=== PATIENT | female | born 1970 | race Caucasian/White ===

== ENCOUNTER 2024-03-14 09:42 | Outpatient (CLI) | payer OTHER, SELFPAY | END 2024-03-14 09:43 | disposition home or self-care (01) | PROVIDERS: PCP Family Medicine; Visit Provider Physician Assistant | DX: N95.0 Postmenopausal bleeding (principal) | CPT/HCPCS: 83001 ==

== ENCOUNTER 2024-03-14 09:56 | Outpatient (CLI) | payer OTHER, SELFPAY ==
--- NOTE | 2024-03-14 10:00 | CRLHL7_ITS ---
For Patients: As a result of the Century Cures Act, medical imaging exams and procedure reports are released immediately into your electronic medical record. You may view this report before your referring provider. If you have questions, please contact your health care provider. INDICATION: Postmenopausal bleeding COMPARISON: none TECHNIQUE: 2D eddy scale and color Doppler images were acquired of the pelvis using a transabdominal and transvaginal approach. FINDINGS: Sonographic images demonstrate a normal size and smooth outer contour of the uterus. Uterus measures 8.7 cm in length by 4.8 cm in AP diameter by 4.5 cm in transverse dimension. Intramural fibroid is present posteriorly measuring 1.3 x 1.3 x 1.3 cm. The endometrial lining measures 6 mm in composite thickness. The right ovary measures 3.0 x 1.3 x 1.7 cm in size and the left ovary measures 3.3 x 1.4 x 2.2 cm. The ovaries demonstrate normal arterial and venous blood flow on color Doppler analysis. There are no suspicious fluid collections within the cul-de-sac. Simple left ovarian cyst is present measuring 1.4 x 1.0 x 1.2 cm. IMPRESSION: Endometrial thickness 6 millimeters. No endometrial fluid. Posterior intramural fibroid measures 1.3 cm. Simple left ovarian cyst measures 1.4 cm. Dictated by Jared Evans MD @ 03/14/2024 1:10:12 PM (Electronically Signed)
== END 2024-03-14 09:57 | disposition home or self-care (01) ==
LOC: US 09:57
PROVIDERS: PCP Family Medicine; Visit Provider Physician Assistant
DX: N95.0 Postmenopausal bleeding (principal); R93.89 Abnormal findings on diagnostic imaging of other specified body structures; D25.1 Intramural leiomyoma of uterus; N83.202 Unspecified ovarian cyst, left side
CPT/HCPCS: 76830; 76856

== ENCOUNTER 2024-04-01 07:21 | Day surgery (SDC) | payer OTHER, SELFPAY ==
[2024-04-01 07:38] VITALS: BMI 31.9
[2024-04-01 07:43] VITALS: BP 119/86; PULSE 91; RESP 16; TEMP 36.6; O2SAT 97
[2024-04-01] MEDS: SODIUM CHLORIDE 0.9 % (FLUSH) 10 ML SYRINGE IVF (07:50)
[2024-04-01 07:55] LABS: Hemoglobin* 14.6 gm/dL (12.0-16.0)
--- NOTE | 2024-04-01 09:02 | W.PM.H&PU ---
History & Physical Update History & Physical Update H&P Reviewed and patient assessed: No changes noted H&P Updates: Ms. Beckman is seen in pre-op prior to planned hysteroscopy and dilation and curettage in the setting of postmenopausal bleeding. No interval change to her health history or questions today. Unfortunately, she forgot to take her vaginal Cytotec last night that she has not received cervical prep. We again reviewed the risks, benefits and alternatives to the planned procedure. I did review that she has an increased risk of perforation in the setting of cervical stenosis, where we will utilize intraoperative safety steps to minimize this risk and ultrasound guidance if needed. Written consent was re-signed. Post-procedure restrictions and expectations reviewed. Pre-op labs reviewed and are within normal limits. No perioperative antibiotics indicated.
--- NOTE | 2024-04-01 09:24 | W.ANESCHARGE ---
Anesthesia Charges Start Date/Time Anesthesia Start Date: 04/01/24 Anesthesia Start Time: 09:05 Stop Date/Time Anesthesia Stop Date: 04/01/24 Anesthesia Stop Time: 09:55
[2024-04-01] MEDS: BUPIVACAINE 0.5% 30 ML INJECTION (09:31)
--- NOTE | 2024-04-01 09:49 | W.PM.GYNPROC ---
Procedure Note Time Seen by Provider: 09:51 Date of procedure: 04/01/24 Will [facility] bill your pro fee for this procedure?: Yes Pre-op diagnosis: Postmenopausal bleeding Cervical stenosis Procedure: Hysteroscopy, dilation and curettage (Truclear) Anesthesia: MAC and local Complications: None Surgeon: Karissa Cervantes MD Estimated blood loss (mL): 5 Urine Output (mL): 20 Pathology: specimen obtained, sent to pathology Condition: stable Disposition: same day Findings: Two small endometrial polyps, anterior lower uterine segment Largely inactive appearing endometrium Normal bilateral tubal ostia Procedure Description: Procedure in detail: Patient was taken to the operating room with IV running. She was positioned in dorsal lithotomy position with her legs fully supported in Yellofin stirrups. Monitored anesthesia care was administered. She was prepped and draped in the usual sterile fashion. Exam under anesthesia was performed, normal external genital exam. Speculum was inserted. Cervix visualized and grasped along the anterior lip with a single-tooth tenaculum. Paracervical block was performed in the usual fashion with a total of 20 mL of 0.5% Marcaine. Uterine sound could be passed with minimal resistance at the internal os, total sounding length of 7cm. Cervix was serially dilated to accommodate the TRUCLEAR hysteroscope without difficulty. This was assembled with saline inflow and outflow in place. The line was flushed of bubbles. The hysteroscope was advanced through the cervix into the endometrial cavity for the above noted findings. The tissue morcellator was then inserted through the operating channel. Window lock was performed. Under direct visualization, the endometrial polyps were 1st resected. The endometrial cavity was then circumferentially curetted with the tissue morcellator. The hysteroscope and morcellator were then removed from the uterus. Sharp curette was passed and advanced to the uterine fundus, where additional D&C was performed with minimal return of tissue and uterine cri noted throughout. Tenaculum was removed from the anterior lip of cervix. Hemostasis was noted. Patient tolerated procedure well. She was taken to recovery area in stable condition.
--- NOTE | 2024-04-01 09:54 | W.ANESCHARGE ---
Anesthesia Charges Start Date/Time Anesthesia Start Date: 04/01/24 Anesthesia Start Time: 09:05 Stop Date/Time Anesthesia Stop Date: 04/01/24 Anesthesia Stop Time: 09:55
[2024-04-01 09:55] VITALS: BP 125/92; PULSE 67; RESP 16; TEMP 36.8; O2SAT 98
[2024-04-01 10:00] VITALS: BP 117/71; PULSE 76; RESP 16; O2SAT 97
[2024-04-01 10:15] VITALS: BP 115/83; PULSE 78; RESP 16; O2SAT 96
== END 2024-04-01 10:50 | disposition home or self-care (01) ==
LOC: OR 07:22
PROVIDERS: PCP Family Medicine; Visit Provider Obstetrics & Gynecology
PROC: 0UDB8ZZ Extraction of Endometrium, Via Natural or Artificial Opening Endoscopic (ICD-10-PCS; CPT 58558; principal; 2024-04-01 08:45)
DX: N95.0 Postmenopausal bleeding (principal); N88.2 Stricture and stenosis of cervix uteri; N84.0 Polyp of corpus uteri
CPT/HCPCS: 58558; 00952; 36415; 85018; 88305; C1782; J0665; J1885; J2250; J2405; J2704; J3010; J3490

== ENCOUNTER 2025-03-09 12:53 | Outpatient (CLI) | payer BC, SELFPAY ==
--- NOTE | 2025-03-09 13:20 | CRLHL7_ITS ---
For Patients: As a result of the Cures Act, medical imaging exams and procedure reports are released immediately into your electronic medical record. You may view this report before your referring provider. If you have questions, please contact your health care provider. INDICATION: BILATERAL SCREENING MAMMOGRAM, ASYMPTOMATIC 54 Y/O FEMALE COMPARISON: 04/04/2022 TECHNIQUE: Digital mammogram in CC and MLO projections including computer-aided detection (CAD) and tomosynthesis. BREAST COMPOSITION: The breasts are heterogeneously dense, which may obscure small masses. FINDINGS: No suspicious findings. ASSESSMENT: BI-RADS 2 Benign RECOMMENDATION: Annual screening mammogram. A lay language report of this examination will be provided to the patient. Dictated by: Jared Evans MD @ 03/13/2025 08:58:30 (Electronically Signed)
== END 2025-03-09 12:54 | disposition home or self-care (01) ==
LOC: MAMMO 12:54
PROVIDERS: Visit Provider Obstetrics & Gynecology
DX: Z12.31 Encounter for screening mammogram for malignant neoplasm of breast (principal); R92.333 Mammographic heterogeneous density, bilateral breasts
CPT/HCPCS: 77063; 77067

== ENCOUNTER 2025-03-11 09:19 | Outpatient (CLI) | payer BC, SELFPAY | END 2025-03-11 09:20 | disposition home or self-care (01) | PROVIDERS: PCP Family Medicine; Visit Provider Family Medicine | DX: R53.83 Other fatigue (principal); Z13.9 Encounter for screening, unspecified | CPT/HCPCS: 80048; 80061; 84443 ==